=== PATIENT | male | born 2005 | race Two or more races ===

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

== ENCOUNTER 2024-01-04 01:06 | Emergency (ER) | payer OTHER ==
[~2024-01-04] VITALS: Ht 180.3 cm; Wt 70.3 kg
[2024-01-04 01:27] VITALS: BP 130/85; TEMP 98.6
[2024-01-04] MEDS ORDERED: SULF1TAB48 PO (01:40)
[2024-01-04] MEDS ORDERED: CEPH500T PO (01:40)
[2024-01-04] MEDS ORDERED: LIDOCAINE 1% INJ 50 ML MDV IJ ONE (01:50)
[2024-01-04] MEDS ORDERED: SULFAMETH/TRIMETH 800/160 MG 1 UDTAB TABLET ONE (01:51)
[2024-01-04] MEDS ORDERED: CEFTRIAXONE 1 G VIAL ONE (01:51)
[2024-01-04] MEDS: SULFAMETH/TRIMETH 800/160 MG 1 UDTAB TABLET PO ONE (01:59)
[2024-01-04] MEDS: CEFTRIAXONE 1 G VIAL IM ONE (01:59)
[2024-01-04 02:00] VITALS: O2SAT 98
== END 2024-01-04 02:01 | disposition home or self-care (01) ==
LOC: ER 01:14
DX: L03.116 Cellulitis of left lower limb (principal)
CPT/HCPCS: 99283; 96372; J3490; J0696

== ENCOUNTER 2024-07-13 23:22 | Emergency (ER) | payer OTHER ==
[~2024-07-13] VITALS: Ht 177.8 cm; Wt 72.6 kg
[~2024-07-13 23:22] MED LIST: CEPH500T PO; SULF1TAB48 PO
[2024-07-14] MEDS ORDERED: ACETAMINOPHEN ES 500 MG TABLET ONE (01:07)
[2024-07-14] MEDS: ACETAMINOPHEN 325 MG TABLET PO ONE (01:07)
[2024-07-14 01:10] VITALS: TEMP 103.1
[2024-07-14 04:00] VITALS: BP 118/67; O2SAT 99
== END 2024-07-14 04:01 | disposition home or self-care (01) ==
LOC: ER 23:27
DX: J02.8 Acute pharyngitis due to other specified organisms (principal); B97.89 Other viral agents as the cause of diseases classified elsewhere; R03.0 Elevated blood-pressure reading, without diagnosis of hypertension; Z79.899 Other long term (current) drug therapy; Z20.822 Contact with and (suspected) exposure to COVID-19
CPT/HCPCS: 86403-TC; 87070-TC